=== PATIENT | female | born 1955 | race American Indian/Alaskan Native ===

== ENCOUNTER 2020-07-15 15:13 | Outpatient (CLI) | payer MEDICARE ==
--- NOTE | 2020-07-17 08:03 | Fluoroscopy Report ---
FLUOROSCOPY CYSTOGRAM STATIC CLINICAL DATA: Hydroonephrrosis TECHNIQUE: Under sterile conditions, approximately 250 cc of iodinated contrast was instilled into the bladder u nder gravity drainage. Early filling supine as well as oblique filled images of the bladder were obta ined. A cyclic study was performed. Post void images were obtained. FINDINGS: The bladder appears normal in contour and capacity. Patient was filled without difficulty. No vesico ureteral reflux was identified with either filling or voiding. No evidence of extravasation of contr ast. Post void imaging demonstrates no residual urine in the bladder IMPRESSION: Normal cystogram as described Fluoroscopy time: 1 minute. Fluoroscopic images: 11 Signer Name: Virgilio Hughes Jr, MD Signed: 07/17/2020 7:59 AM Workstation Name: [id number]
== END 2020-07-15 15:14 | disposition home or self-care (01) ==
LOC: FLUORO 15:13
PROVIDERS: ATTEND Urology
DX: N13.39 Other hydronephrosis (principal)
CPT/HCPCS: 74430; Q9958